=== PATIENT | male | born 1980 | race Caucasian/White ===

== ENCOUNTER 2017-08-27 01:11 | Emergency (ER) | payer SELFPAY ==
[~2017-08-27] VITALS: Ht 182.9 cm; Wt 139.8 kg
[~2017-08-27 01:11] MED LIST: AMITRIPTYLINE H10 MG PO; DILAUDID2 MG PO; DILAUDID4 MG PO; ENDOCET 5-3251 EACH PO; LISINOPRIL-HCT1 EAC3 PO; MOBIC15 MG PO; NEURONTIN100 MG PO; PROPRANOLOL HC120 MG PO; VALIUM5 MG PO
[2017-08-27 01:45] LABS: APPEARANCE CLEAR ((CLEAR)); BILIRUBIN NEGATIVE; BLOOD NEGATIVE; COLOR YELLOW ((YELLOW)); GLUCOSE (STRIP) NEGATIVE; KETONES NEGATIVE; LEUKOCYTES NEGATIVE; NITRITE NEGATIVE; PROTEIN (STRIP) 30; SPECIFIC GRAVITY 1.026 (1.000-1.030); UCUL ADDED? NO; UROBILINOGEN 0.2 MG/DL (0.2-1.0)
[2017-08-27 01:52] LABS: HEMATOCRIT 52.6 % (38.0-50.0); HEMOGLOBIN 18.1 G/DL (12.5-16.6); MCH 29.9 PG (29.0-34.0); MCHC 34.4 G/DL (30.0-36.0); MCV 86.9 FL (86-99); PLATELET COUNT 217 K/uL (156-360); RBC DIS.WIDTH-CV 12.5 % (11.8-14.6); RBC DIS.WIDTH-SD 39.4 % (39-53); RED BLOOD COUNT 6.05 M/uL (4.00-5.50); WHITE BLOOD COUNT 9.2 K/uL (4.1-10.2)
[2017-08-27 02:07] LABS: ALBUMIN 4.6 g/dL (3.2-4.8)
[2017-08-27 02:08] LABS: CHLORIDE 106 mEq/L (99-109); POTASSIUM 4.1 mEq/L (3.7-5.4); SODIUM 141 mEq/L (136-147)
[2017-08-27 02:10] LABS: GLUCOSE 82 mg/dL (70-99); TOTAL PROTEIN 7.6 g/dL (6.4-8.3)
[2017-08-27 02:13] LABS: ALKALINE PHOSPHATASE 57 IU/L (3-129)
[2017-08-27 02:14] LABS: CREATININE 1.8 mg/dL (0.6-1.3); GFR ESTIMATE (CALCULATED) 45 mL/min/ (58.99-99999)
[2017-08-27 02:15] LABS: AST (GOT) 21 IU/L (2-34); UREA NITROGEN (BUN) 20 mg/dL (9-23)
[2017-08-27 02:17] LABS: ALT (GPT) 39 IU/L (3-49); LIPASE 55 U/L (1.0-51.0)
[2017-08-27] MEDS ORDERED: ELIQUIS (04:31)
[2017-08-27 07:45] VITALS: BP 129/84
== END 2017-08-27 07:40 | disposition home or self-care (01) ==
LOC: EME 01:11
DX: R10.10 Upper abdominal pain, unspecified (principal); R10.9 Unspecified abdominal pain; J45.909 Unspecified asthma, uncomplicated; I10 Essential (primary) hypertension; G43.909 Migraine, unspecified, not intractable, without status migrainosus; K21.9 Gastro-esophageal reflux disease without esophagitis; Z86.718 Personal history of other venous thrombosis and embolism; Z86.711 Personal history of pulmonary embolism; F17.200 Nicotine dependence, unspecified, uncomplicated
CPT/HCPCS: 74176; 80053; 81003; 83690; 85027; 99281; 99284

== ENCOUNTER 2017-12-12 05:52 | Emergency (ER) | payer OTHER ==
[~2017-12-12] VITALS: Ht 182.9 cm; Wt 137.8 kg
[~2017-12-12 05:52] MED LIST changes: +ELIQUIS
[2017-12-12 06:28] LABS: BASOPHIL (%) 1.3 % (0-1); BASOPHIL COUNT 0.1 K/uL (0-0.1); EOSINOPHIL (%) 4.1 % (0-5); EOSINOPHIL COUNT 0.2 K/uL (0-0.3); HEMATOCRIT 49.6 % (38.0-50.0); HEMOGLOBIN 17.2 G/DL (12.5-16.6); IMMATURE GRANULOCYTE (%) 0.2 % (0.0-0.7); LYMPHOCYTE (%) 34.2 % (15-42); LYMPHOCYTE COUNT 1.8 K/uL (1.0-2.8); MCH 30.1 PG (29.0-34.0); MCHC 34.7 G/DL (30.0-36.0); MCV 86.9 FL (86-99); MONOCYTE (%) 13.8 % (3-12); MONOCYTE COUNT 0.7 K/uL (0-0.8); NEUTROPHIL (%) 46.4 % (45-76); NEUTROPHIL COUNT 2.5 K/uL (1.8-6.4); PLATELET COUNT 201 K/uL (156-360); RBC DIS.WIDTH-CV 12.8 % (11.8-14.6); RBC DIS.WIDTH-SD 39.9 % (39-53); RED BLOOD COUNT 5.71 M/uL (4.00-5.50); WHITE BLOOD COUNT 5.4 K/uL (4.1-10.2)
[2017-12-12 06:37] LABS: PTT 28.4 SEC (25-37)
[2017-12-12 07:05] LABS: TROP-I INTERPRETATION NEGATIVE; TROPONIN-I 0.01 ng/mL (0.0-0.30)
[2017-12-12 07:06] LABS: ALBUMIN 4.4 G/DL (3.2-4.8); ALKALINE PHOSPHATASE 46 IU/L (3-129); ALT (GPT) 28 IU/L (3-49); AST (GOT) 18 IU/L (2-34); CHLORIDE 106 MEQ/L (99-109); CREATININE 1.6 MG/DL (0.6-1.3); GFR ESTIMATE (CALCULATED) 52 mL/min/ (58.99-99999); GLUCOSE 85 mg/dL (70-99); POTASSIUM 4.5 MEQ/L (3.7-5.4); SODIUM 142 MEQ/L (136-147); TOTAL BILIRUBIN 1.3 MG/DL (0.0-1.0); TOTAL PROTEIN 6.8 G/DL (6.4-8.3); UREA NITROGEN (BUN) 19 mg/dL (9-23)
[2017-12-12 10:36] VITALS: BP 128/76
== END 2017-12-12 09:30 | disposition home or self-care (01) ==
LOC: EME 05:52
PROVIDERS: Emergency Medicine
DX: R07.9 Chest pain, unspecified (principal); K80.20 Calculus of gallbladder without cholecystitis without obstruction; I10 Essential (primary) hypertension; K21.9 Gastro-esophageal reflux disease without esophagitis; J45.909 Unspecified asthma, uncomplicated; Z86.711 Personal history of pulmonary embolism; Z86.718 Personal history of other venous thrombosis and embolism; Z79.01 Long term (current) use of anticoagulants; F17.200 Nicotine dependence, unspecified, uncomplicated
CPT/HCPCS: 71275; 76705; 80053; 84484; 85025; 85610; 85730; 93005; 99281; 99285; J7030